=== PATIENT | male | born 1995 | race African-American/Black ===

== ENCOUNTER 2017-09-07 14:46 | Emergency (ER) | payer SELFPAY ==
[~2017-09-07] VITALS: Ht 167.6 cm; Wt 61.2 kg
[2017-09-07 14:56] VITALS: BP 136/81
--- NOTE | 2017-09-07 15:41 | RAD ---
3 views left ankle 09/07/2017 3:06 PM Indication: LANDED WRONG PLAYING BASKETBALL YESTERDAY, LEFT FOOT AND ANKLE PAIN AND SWELLING Comparison: None Findings: There is no acute fracture or dislocation. Articular surfaces are uninterupted and smooth. Soft tissues are unremarkable. Impression: No evidence of acute osseous abnormality. Electronically signed by: Howie Crowder MD (09/07/2017 3:38 PM) [id number]
--- NOTE | 2017-09-07 15:43 | RAD ---
3 views left foot 09/07/2017 3:11 PM Indication: LANDED WRONG PLAYING BASKETBALL YESTERDAY, LEFT FOOT AND ANKLE PAIN AND SWELLING Comparison: None Findings: There is no acute fracture or dislocation. Articular surfaces are uninterupted and smooth. Soft tissues are unremarkable. Impression: No evidence of acute osseous abnormality. Electronically signed by: Howie Crowder MD (09/07/2017 3:40 PM) [facility]
[2017-09-07] MEDS ORDERED: IBUP400T18 PO (15:56)
--- NOTE | 2017-09-07 15:56 | PHYS DOC ---
Past History Past Medical History: No Pertinent History Past Surgical History: No Surgical History Alcohol Use: None Drug Use: None Adult General Chief Complaint Chief Complaint: FOOT INJURY PAIN HPI HPI 22-year-old male presenting to the emergency department today with left foot injury. This happened yesterday when he was playing basketball and he "rolled his ankle". He reports eversion of his left foot. He has pain in his left ankle on the lateral side along with the top of his foot. His pain is a sharp shooting pain associated with swelling. He tried using ice on it which will relieve. Review of systems is negative for chest pain shortness of breath knee injury or hip pain. All other review of systems is negative unless otherwise noted in history of present illness. ED course: 22-year-old female presenting to the emergency department today with left foot pain after injuring it playing basket ball. X-rays were unremarkable for acute fracture. We gave the patient crutches and placed the patient in a ankle wrap. We will have the patient weight-bear as tolerated to follow-up with his doctor in 2-3 days. He may be an MRI if his pain does not improve or if he is unable to ambulate over the next few days. [id number] discharge instructions were given to the patient. He is comfortable with plan. Review of Systems Review of Systems SEE ABOVE. Physical Exam Physical Exam SEE ABOVE Constitutional: Well developed, well nourished, no acute distress, non-toxic appearance. [] HENT: Normocephalic, atraumatic, bilateral external ears normal, oropharynx moist, no oral exudates, nose normal. [] Eyes: PERRLA, EOMI, conjunctiva normal, no discharge. [] Neck: Normal range of motion, no tenderness, supple, no stridor. [] Cardiovascular:Heart rate regular rhythm, no murmur [] Lungs & Thorax: Bilateral breath sounds clear to auscultation [] Abdomen: Bowel sounds normal, soft, no tenderness, no masses, no pulsatile masses. [] Skin: Warm, dry, no erythema, no rash. [] Back: No tenderness, no CVA tenderness. [] Extremities: The patient's left ankle and foot show mild swelling of the foot. No ecchymosis lacerations or abrasions. He has mild tenderness over the lateral portion of his foot. Nontender of the dorsum. Nontender in the ankle. Normal range of motion of the ankle. He has normal sensation and motor function of the foot. Neurovascularly intact. 2 second cap refill. Knee is nontender. The remainder the extremities are atraumatic without deformity or injury. Neurologic: Alert and oriented X 3, normal motor function, normal sensory function, no focal deficits noted. [] Psychologic: Affect normal, judgement normal, mood normal. [] Current Patient Data Vital Signs Vital Signs Date Time Temp Pulse Resp B/P (MAP) Pulse Ox O2 Delivery O2 Flow Rate FiO2 09/07/17 14:56 74 20 100 Room Air EKG EKG [] Radiology/Procedures Radiology/Procedures [] Course & Med Decision Making Course & Med Decision Making Pertinent Labs and Imaging studies reviewed. (See chart for details) [] Dragon Disclaimer Dragon Disclaimer This electronic medical record was generated, in whole or in part, using a voice recognition dictation system. Departure Departure: Impression: Primary Impression: Left ankle pain Additional Impression: Left foot pain Disposition: HOME, SELF-CARE Condition: STABLE Referrals: PCP,BENEDICT (PCP) GEETA DAWSON MD Patient Instructions: Ankle Sprain Additional Instructions: Thank you for allowing us to participate in your care today. Followup with your primary care physician in 3 days if your symptoms do not improve. Call your Primary Doctor tomorrow and inform them of your visit today. If you do not have a primary care provider you can ask for a list of our primary care providers. Return to the emergency department you have any new or concerning findings. If you continue to have pain, you will likely need an MRI of the foot and ankle or specialist (ortho) referral. This should be evaluated by the primary care physician and any necessary consulting services for continued management within a few days after discharge. Return to emergency room if you have any new or concerning symptoms including but not limited to fever, chills, nausea, vomiting, intractable pain, any new rashes, chest pain, shortness of air, uncontrolled bleeding, difficulty breathing, and/or vision loss. If at any time, you are having difficulty getting into your primary care doctor or a specialist, return to the emergency department. You may have been prescribed medication or given medication in the emergency department that can change in your level of thinking and ability to operate machinery. These medications include hydrocodone and Ativan. Also, Benadryl has been known to do this as well. Be sure to check with your pharmacist and ask if the medications you've prescribed can affect your level of consciousness. I recommend not operating heavy machinery or driving while on medication such as these. Scripts Ibuprofen (IBUPROFEN) 400 Mg Tablet 1 TAB PO PRN Q8HRS PRN for PAIN, #20 TAB Prov: SPENSER DIXON MD 09/07/17 Problem Qualifiers SPENSER DIXON MD September 07, 2017 15:56
== END 2017-09-07 16:15 | disposition home or self-care (01) ==
LOC: ER 14:46
DX: M79.672 Pain in left foot (principal); M25.572 Pain in left ankle and joints of left foot; R22.42 Localized swelling, mass and lump, left lower limb; X50.9XXA Other and unspecified overexertion or strenuous movements or postures, initial encounter; Y93.67 Activity, basketball; Y99.8 Other external cause status; Y92.89 Other specified places as the place of occurrence of the external cause
CPT/HCPCS: 73610; 73630; 99284